=== PATIENT | female | born 1960 | race Caucasian/White ===

== ENCOUNTER 2019-06-23 16:36 | Emergency (ER) | payer MEDICAID ==
[~2019-06-23] VITALS: Ht 157.5 cm; Wt 89.5 kg
[~2019-06-23 16:36] MED LIST: CIPR500T4 PO; DICY10CA40 PO; DIPH1TAB PO; ONDA4TAB14 PO
[2019-06-23 16:39] VITALS: Ht 157.5 cm; Wt 89.5 kg
[2019-06-23] MEDS ORDERED: ONDANSETRON 4 MG INJ IV STA (17:07)
[2019-06-23] MEDS ORDERED: SOD CHLORIDE 0.9% 1,000 ML IV STA (17:07)
[2019-06-23] MEDS ORDERED: HYDROmorphONE 1 MG/ML SYG IV STA (17:07)
[2019-06-23] MEDS ORDERED: IOHEXOL 300MG/ML 150 ML BTL ONE (18:17)
[2019-06-23] MEDS ORDERED: SOD CHLORIDE 0.9% 100 ML ONE (18:17)
[2019-06-23 20:18] VITALS: BP 143/78; PULSE 89; RESP 18
== END 2019-06-23 20:20 | disposition home or self-care (01) ==
LOC: E/R 16:36
DX: R10.33 Periumbilical pain (principal); R19.7 Diarrhea, unspecified; R11.2 Nausea with vomiting, unspecified; R40.2142 Coma scale, eyes open, spontaneous, at arrival to emergency department; R40.2362 Coma scale, best motor response, obeys commands, at arrival to emergency department; R40.2252 Coma scale, best verbal response, oriented, at arrival to emergency department
CPT/HCPCS: 36415; 74177; 80053; 83690; 85025; 96361; 96374; 96375; J1170; J2405; J7030; Q9967; Z7502; Z7610